=== PATIENT | female | born 1975 | race Caucasian/White ===

== ENCOUNTER 2022-07-04 00:54 | Day surgery (SDC) | payer BC, SELFPAY ==
[2022-06-24 15:58] VITALS: BMI 30.2
[2022-07-04 11:10] VITALS: PULSE 83; RESP 16; TEMP 36.6; O2SAT 100; BMI 30.4
[2022-07-04] MEDS: LACTATED RINGERS 1,000 ML 150 ML IV CONT (11:26)
--- NOTE | 2022-07-04 11:41 | P.PNAN_ITS ---
Anes - Initial Pre Proc Eval Procedure: Operation Date: 07/04/22 12:30 Proposed Procedures p Screening Colonoscopy - Gary Quintana MD Date/Time: 07/04/22 11:41 Surgeon: Gary Quintana MD Pre Op Diagnosis: neoplasm screening Patient Data Age: 46 Gender: F Height: 1.63 m Weight: 80.3 kg Last Vital Signs Temp 97.8 F 07/04/22 11:10 Pulse 83 07/04/22 11:10 Resp 16 07/04/22 11:10 Pulse Ox 100 07/04/22 11:10 O2 Del Method Room Air 07/04/22 11:10 Allergies Allergy/AdvReac Type Severity Reaction Status Date / Time No Known Allergies Allergy Verified 06/24/22 15:55 Home Medications Medication Instructions Recorded Confirmed Type amlodipine 5 mg-valsartan 160 mg 1 tablet PO DAILY 06/24/22 06/24/22 History tablet ascorbic acid (vitamin C) 1,000 mg 1 g PO DAILY 06/24/22 06/24/22 History tablet cholecalciferol (vitamin D3) 100 100 mcg PO DAILY 06/24/22 06/24/22 History mcg (4,000 unit) capsule omega-3 fatty acids 1,000 mg PO DAILY 06/24/22 06/24/22 History Patient hx anesthesia problems: none Family hx anesthesia problems: none Results Review: All pre-operative results and documents have been reviewed as part of the pre- operative evaluation. PMF Social History Social History Smoking status: Never smoker Alcohol intake: never Substance use: never Substance use type: does not use Living arrangements: with family Spiritual care concerns: No Anes - Eval Final PreProcedure Day of Procedure 07/04/22 11:41 Patient weight: normal Heart: regular rate and rhythm Lungs: clear to auscultation Airway: Mallampati scale class II Neurological: alert and oriented Last oral intake: >/= 8 hours ASA classification: II Emergent: no Anesthetic plan: proceed Anesthesia type and monitoring: general GIVS and standard monitoring Results Review: All pre-operative results and documents have been reviewed as part of the pre- operative evaluation. Informed Consent: The patient's anesthetic plan and its attendant risks and benefits were discussed with the patient/family/POA. Questions were solicited and answers provided to the satisfaction of the patient/family/POA.
--- NOTE | 2022-07-04 11:47 | PM.HPGS ---
History of Present Illness History of Present Illness Consent: Risks, benefits, and alternatives have been discussed and questions answered. Patient agrees to proceed with procedure. Chief complaint: neoplasm screening Narrative: Gemma Isidro is a 46 year old female here for first screening colonoscopy Review of Systems Constitutional: Constitutional: Denies headache(s) and Denies weakness Eyes: Eyes: Denies blurry vision ENT: Reports Normal hearing present, Denies headache(s) and Denies neck pain Cardiovascular: Cardiovascular: Denies chest pain and Denies dyspnea Respiratory: Respiratory: Denies dyspnea Gastrointestinal: Gastrointestinal: Reports no additional gastrointestinal complaints Genitourinary: Genitourinary: Denies dysuria Musculoskeletal: Musculoskeletal: Denies neck pain Integumentary/Breasts: Skin/Breast: Denies dry skin Neurologic: Reports Normal hearing present, Denies headache(s) and Denies weakness Psychiatric: Psychiatric: Denies anxiety Endocrine: Endocrine: Denies change in body appearance Hematologic/Lymphatic: Hematologic/Lymphatic: Denies easy bleeding Allergic/Immunologic: Allergic/Immunologic: Denies urticaria PMFSH Past Medical History Medical History (Updated 07/04/22 @ 11:47 by Gary Quintana MD) Colon cancer screening Social History Social History Smoking status: Never smoker Alcohol intake: never Substance use: never Substance use type: does not use Living arrangements: with family Spiritual care concerns: No Meds Home Medications and Allergies Home Medications Medication Instructions Recorded Confirmed Type amlodipine 5 mg-valsartan 160 mg 1 tablet PO DAILY 06/24/22 06/24/22 History tablet ascorbic acid (vitamin C) 1,000 mg 1 g PO DAILY 06/24/22 06/24/22 History tablet cholecalciferol (vitamin D3) 100 100 mcg PO DAILY 06/24/22 06/24/22 History mcg (4,000 unit) capsule omega-3 fatty acids 1,000 mg PO DAILY 06/24/22 06/24/22 History Allergies Allergy/AdvReac Type Severity Reaction Status Date / Time No Known Allergies Allergy Verified 06/24/22 15:55 Vital Signs Vital Signs - 24 hr 07/04/22 11:10 Temperature 97.8 F Pulse Rate 83 Respiratory Rate 16 Pulse Oximetry 100 Oxygen Delivery Room Air Exam Const: General: comfortable and no acute distress HENMT: General nose exam: Normal nares present Eyes: General: appearance normal, both eyes and all related structures Neck: Neck: no JVD Resp: Auscultation: clear to auscultation bilaterally Cardio: Rate: regular rate Rhythm: regular rhythm GI: Inspection: non-distended GI Palp: Yes Soft to palpation Skin: General skin exam: normal color Neuro: General: gait normal Speech: normal speech Extrem: General: normal to inspection Psych: Mental Status: mental status grossly normal Assessment and Plan Assessment and plan (1) Colon cancer screening: Code(s): Z12.11 - Encounter for screening for malignant neoplasm of colon Status: Acute Assessment and Plan: colonoscopy
[2022-07-04 12:05] VITALS: BP 126/78; PULSE 87; RESP 19; O2SAT 100
[2022-07-04 12:15] VITALS: BP 120/77; PULSE 77; RESP 22; O2SAT 98
[2022-07-04 12:25] VITALS: BP 121/81; PULSE 72; RESP 24; O2SAT 100
== END 2022-07-04 12:31 | disposition home or self-care (01) ==
PROVIDERS: PCP Physician Assistant; Visit Provider Internal Medicine Gastroenterology
PROC: 0DJD8ZZ Inspection of Lower Intestinal Tract, Via Natural or Artificial Opening Endoscopic (ICD-10-PCS; CPT 45378; principal; 2022-07-04 12:30)
DX: Z12.11 Encounter for screening for malignant neoplasm of colon (principal); K64.8 Other hemorrhoids
CPT/HCPCS: 45378; J2704; J7120

== ENCOUNTER 2022-10-21 13:56 | Emergency (ER) | payer BC, SELFPAY ==
--- NOTE | ~2022-10-21 | XR_ITS ---
EXAMINATION: XR chest 2V DATE: 10/21/2022 14:25 INDICATION: Cough TECHNIQUE: PA and lateral views of the chest are obtained. COMPARISON: None available FINDINGS: The lungs are free of acute opacities. No pleural effusion or pneumothorax. The cardiomedia stinal silhouette is normal. The visualized bones and soft tissues are unremarkable. IMPRESSION: 1. No acute cardiopulmonary abnormality. Reviewed, dictated and finalized at location [facility]. [facility]
--- NOTE | 2022-10-21 14:12 | ED.URI ---
HPI - URI/Sore Throat General Chief Complaint: Upper Respiratory Infection Stated Complaint: Cough phlem and blood; trouble sleeping; vomitin Time Seen by Provider: 10/21/22 14:20 Source: patient Mode of arrival: ambulatory Limitations: no limitations History of Present Illness HPI Narrative: Gemma is a in a 46-year-old female patient presenting to the clinic today with complaints of cough with phlegm and blood coming up, trouble sleeping, and vomiting. She reports the all the symptoms are due to the cough. States that she has had symptoms for approximately 21 days. She denies any fever or chills. MD elicited complaint: cough and nasal congestion Related Data Home Medications Medication Instructions Recorded Confirmed amlodipine 5 mg-valsartan 160 mg 1 tablet PO DAILY 06/24/22 10/21/22 tablet rosuvastatin 5 mg tablet 5 mg PO DAILY 10/21/22 10/21/22 Allergies Allergy/AdvReac Type Severity Reaction Status Date / Time No Known Allergies Allergy Verified 10/21/22 14:20 Review of Systems Review of Systems: Pertinent positives per HPI. Patient denies any fever, chills, rash, headache, visual changes, dizziness, cough, shortness of breath, chest pain, palpitations, nausea, vomiting, diarrhea, constipation, abdominal pain, or any urinary issues. [facility] Past Medical History Medical History Colon cancer screening Social History Social History Smoking status: Never smoker Alcohol intake: never Substance use: never Substance use type: does not use Spiritual care concerns: No Comments At the time of my signature, I reviewed and agree with the nursing past medical, surgical, social, and family history. There is no relevant family history pertinent to the patient complaint. Exam Narrative: General: Well-developed, well nourished, in no apparent distress Head: Normocephalic, atraumatic Eyes: Pupils equally round and reactive to light bilaterally, EOM intact, sclera and conjunctive clear, no discharge, lids normal Ears: TMs intact and clear, ear canals clear, no drainage, grossly hearing normal. Nose: Nares patent, clear nasal discharge, mild inflammation, no sinus tenderness. Mouth: Oral pharynx without lesions or masses, good dentition, MMM. Postnasal drip Neck: Supple, trachea midline, no enlargement of anterior or posterior cervical nodes, no thyroid masses or goiter palpable. Cardio: Regular rate and rhythm, s1 and s2 normal, no murmur appreciated. Resp: Clear to auscultation bilaterally, no rhonchi, rales, wheezing or rubs Course Course Emergency Course: Portions of this record may have been created with voice recognition software. Level of Care: Express Care Visit Vital Signs Vital signs: Vital Signs Temperature 36.8 C 10/21/22 14:19 Pulse Rate 98 10/21/22 14:19 Respiratory Rate 18 10/21/22 14:19 Blood Pressure 118/78 10/21/22 14:19 Pulse Oximetry 100 10/21/22 14:19 Temperature 36.8 C 10/21/22 14:19 Pulse Rate 98 10/21/22 14:19 Respiratory Rate 18 10/21/22 14:19 Blood Pressure 118/78 10/21/22 14:19 Pulse Oximetry 100 10/21/22 14:19 Vital signs reviewed MDM - URI/Sore Throat MDM Narrative Medical decision making narrative: At the time of visit patient is resting comfortably on the exam table. Chest x-ray was performed and was negative for any sign of pneumonia in the clinic today. I suspect the patient has bronchitis. Will send in prescription for albuterol inhaler, Tessalon Perles, and prednisone. Supportive measures were discussed with the patient she voiced understanding of discharge instructions and agrees to treatment plan. Differential Diagnosis Differential diagnosis: Likely upper respiratory infection, otitis media, sinusitis, viral infection, bronchitis, influenza, pharyngitis and other (COVID) Imaging Data Rad
[2022-10-21 14:19] VITALS: BP 118/78; PULSE 98; RESP 18; TEMP 36.8; O2SAT 100
== END 2022-10-21 14:59 | disposition home or self-care (01) ==
PROVIDERS: Emergency Provider Nurse Practitioner Family; PCP Physician Assistant
DX: J40 Bronchitis, not specified as acute or chronic (principal)
CPT/HCPCS: 71046; 99213; G0463